=== PATIENT | male | born 1960 | race Caucasian/White ===

== ENCOUNTER 2018-08-01 07:05 | Day surgery (SDC) | payer MEDICAID ==
[~2018-08-01] VITALS: Ht 188 cm; Wt 80.9 kg
[~2018-08-01 07:05] MED LIST: MAVYRET PO; METF-438 PO
[2018-08-01 07:15] VITALS: BP 163/101
[2018-08-01] MEDS ORDERED: OMEP20TA5 PO (07:24)
[2018-08-01] MEDS ORDERED: ASPI-611 PO (07:25)
[2018-08-01] MEDS ORDERED: MULT-1085 PO (07:26)
[2018-08-01] MEDS ORDERED: MIDAZolam 5mg/5ml vial ONE (07:47)
[2018-08-01] MEDS ORDERED: LIDOcaine Viscous 15ml cup ONE (07:48)
[2018-08-01] MEDS ORDERED: fentaNYL/PF 50MCG/1 ML 2ML syringe ONE (08:00)
[2018-08-01 08:55] VITALS: BP 158/95
[2018-08-01 09:05] VITALS: BP 125/78
[2018-08-01 09:15] VITALS: BP 129/74
[2018-08-01 09:25] VITALS: BP 132/86
== END 2018-08-01 09:30 | disposition home or self-care (01) ==
LOC: GI LAB 07:05
PROVIDERS: ATTEND Internal Medicine Gastroenterology
DX: I85.00 Esophageal varices without bleeding (principal); I10 Essential (primary) hypertension; E11.9 Type 2 diabetes mellitus without complications; F10.21 Alcohol dependence, in remission; Z79.82 Long term (current) use of aspirin; Z79.84 Long term (current) use of oral hypoglycemic drugs; Z87.891 Personal history of nicotine dependence; Z86.19 Personal history of other infectious and parasitic diseases; Z98.890 Other specified postprocedural states; Z79.899 Other long term (current) drug therapy
CPT/HCPCS: 43235; J2250; J3010; J7030; 99152; 99153; A4620

== ENCOUNTER 2020-08-01 22:41 | Emergency (ER) | payer MEDICAID, MEDICARE, OTHER ==
[~2020-08-01] VITALS: Ht 188 cm; Wt 81.8 kg
[~2020-08-01 22:41] MED LIST changes: +ASPI-611 PO; -MAVYRET PO; +MULT-1085 PO; +OMEP20TA5 PO
[2020-08-01 22:42] VITALS: BP 170/94
--- NOTE | 2020-08-01 23:23 | NUR ---
PT REPORTS RASH "ALL OVER" FOR THE PAST THREE WEEKS AND HAS WORSENED OVER TIME. PT REPORTS THAT IT "FLARES UP" AND BECOMES RED AND BLISTERY. HAS BEEN USING CALAMINE AT HOME.
[2020-08-02] MEDS ORDERED: PRED20TA PO (00:06)
[2020-08-02] MEDS ORDERED: predniSONE 20 mg tablet PO STA (00:08)
== END 2020-08-02 00:39 | disposition home or self-care (01) ==
LOC: ER 22:41
DX: L23.9 Allergic contact dermatitis, unspecified cause (principal); I10 Essential (primary) hypertension; E11.9 Type 2 diabetes mellitus without complications; Z86.19 Personal history of other infectious and parasitic diseases; Z79.82 Long term (current) use of aspirin; Z79.899 Other long term (current) drug therapy
CPT/HCPCS: 99283; J7512

== ENCOUNTER 2024-05-26 17:20 | Emergency (ER) | payer MEDICARE, MEDICAID ==
[~2024-05-26] VITALS: Ht 188 cm; Wt 77.3 kg
[~2024-05-26 17:20] MED LIST changes: +OMEP20TA43 PO; -OMEP20TA5 PO
[2024-05-26 19:20] LABS: BASOPHILS % (AUTO) 0.6 % (0-1); EOSINOPHILS % (AUTO) 0.1 % (0-6); HEMATOCRIT 40.6 % (42.0-52.0); HEMOGLOBIN 13.8 g/dl (14.0-17.9); LYMPHOCYTES # (AUTO) 0.4 X10'3 (1.1-4.8); LYMPHOCYTES % (AUTO) 13.3 % (21-51); MEAN CORPUSCULAR HEMOGLOBIN 31.8 PG (27.0-31.0); MEAN CORPUSCULAR HGB CONC 33.9 g/dL (33.0-36.5); MEAN CORPUSCULAR VOLUME 93.9 FL (78-98); MEAN PLATELET VOLUME 8.4 FL (7.4-10.4); MONOCYTES # (AUTO) 0.6 X10'3 (0-0.9); MONOCYTES % (AUTO) 18.4 % (2-12); NEUTROPHILS # (AUTO) 2.2 X10'3 (1.8-7.7); NEUTROPHILS % (AUTO) 67.6 % (42-75); PLATELET COUNT 153 X10'3 (140-440); RED BLOOD COUNT 4.33 X10'6 (4.70-6.10); RED CELL DISTRIBUTION WIDTH 14.6 % (11.5-14.5); WHITE BLOOD COUNT 3.2 X10'3 (4.5-11.0)
[2024-05-26 19:30] LABS: APTT 26 SECONDS (22-32); PROTHROMBIN TIME 10.5 SECONDS (9.0-12.0)
[2024-05-26 19:32] LABS: ALANINE AMINOTRANSFERASE 37 U/L (12-78); ALBUMIN 4.3 G/DL (3.4-5.0); ALBUMIN/GLOBULIN RATIO 1.1 (1.1-1.5); ALKALINE PHOSPHATASE 88 IU/L (46-116); ANION GAP 8 (8-16); ASPARTATE AMINO TRANSFERASE 30 U/L (10-37); BILIRUBIN,TOTAL 0.6 MG/DL (0.1-1.0); BLOOD UREA NITROGEN 20 MG/DL (7-18); CHLORIDE 101 MMOL/L (99-107); GLUCOSE 175 MG/DL (70-104); LIPASE 205 U/L (16-77); SODIUM 137 MMOL/L (135-145); TOTAL CARBON DIOXIDE 27.8 MMOL/L (24-32); TOTAL PROTEIN 8.3 G/DL (6.4-8.2); eCRCL 79 ML/MIN; eGFR 75 ML/MIN
[2024-05-26 19:55] LABS: BILIRUBIN,URINE NEGATIVE (Neg); CLARITY,URINE CLOUDY (Clear); COLOR,URINE STRAW (Yellow); GLUCOSE, URINE NEGATIVE (Neg); KETONES,URINE NEGATIVE (Neg); LEUKOCYTE ESTERASE ,URINE NEGATIVE (Neg); NITRITES, URINE NEGATIVE (Neg); OCCULT BLOOD,URINE TRACE-INTACT (Neg); PROTEIN,URINE TRACE mg/dl (Neg); UROBILINOGEN,URINE 0.2 E.U/dL (0.2-1.0)
[2024-05-26 19:56] LABS: UA COLLECTION TYPE CLN CATCH MIDSTREAM
[2024-05-26 20:02] LABS: TOTAL CELLS COUNTED 100
[2024-05-26 20:03] LABS: PLATELET ESTIMATE NORMAL
[2024-05-26 20:07] LABS: AMORPHOUS PHOSPHATES 3+; BACTERIA,URINE NONE SEEN /HPF (Neg); RBC,URINE 0-2 /HPF (0-2); SQUAMOUS EPITHELIAL CELL,UR FEW /LPF (FEW); WBC,URINE NONE SEEN /HPF (0-4)
[2024-05-26] MEDS: ondansetron 4mg rapidly disintigrating tab PO ONE (21:12)
[2024-05-26] MEDS: dicyclomine 10 MG capsule PO ONE (21:12)
[2024-05-26] MEDS: ketorolac trometh. 30mg/ml inj. IM ONE (21:14)
[2024-05-26] MEDS ORDERED: DICY20TA17 PO (21:19)
[2024-05-26] MEDS ORDERED: ONDA-243 PO (21:19)
[2024-05-26 21:21] VITALS: BP 126/76; PULSE 75; RESP 16; TEMP 98.4; O2SAT 98
== END 2024-05-26 21:22 | disposition home or self-care (01) ==
LOC: ER 17:20
DX: R10.30 Lower abdominal pain, unspecified (principal); I10 Essential (primary) hypertension; E11.9 Type 2 diabetes mellitus without complications; Z79.82 Long term (current) use of aspirin; Z79.84 Long term (current) use of oral hypoglycemic drugs; Z87.891 Personal history of nicotine dependence
CPT/HCPCS: 74176; 80053; 81001; 83605; 83690; 84145; 85007; 85025; 85610; 85730; 96372; 99285; J1885